=== PATIENT | male | born 1945 | race Hispanic/Latino ===

== ENCOUNTER 2017-07-22 09:36 | Emergency (ER) | payer MEDICARE ==
[2017-07-22 09:49] VITALS: BP 127/61; PULSE 74; RESP 18; TEMP 97; O2SAT 94
--- NOTE | 2017-07-22 10:20 | ED PDOC ---
Upper Extremity Pain/Injury Time Seen by Provider: 07/22/17 09:40 Chief Complaint (Nursing): Upper Extremity Problem/Injury Chief Complaint (Provider): Left arm pain History Per: Patient History/Exam Limitations: no limitations Onset/Duration Of Symptoms: Hrs Current Symptoms Are (Timing): Still Present Additional Complaint(s): 71 y/o male presents to the emergency department with a complaint of left arm pain after he tripped and fell on the streets earlier today, 07/22/2017. Reports last tetanus shot was about 3 years ago. Denies loss of consciousness or head injury. PMD: Dr. Florencio Carvalho MD Past Medical History Reviewed: Historical Data, Nursing Documentation, Vital Signs Vital Signs: Last Vital Signs Temp 97 F L 07/22/17 09:46 Pulse 74 07/22/17 09:46 Resp 18 07/22/17 09:46 BP 127/61 07/22/17 09:46 Pulse Ox 94 L 07/22/17 09:46 - Medical History PMH: Cardia Arrhythmia, HTN, Hyperthyroidism - Family History Family History: States: Unknown Family Hx - Social History Current smoker - smoking cessation education provided: Yes (Heavy Smoker > 10 Cigarettes Daily) Alcohol: None Drugs: Denies - Home Medications Home Medications: Ambulatory Orders Medication Instructions Recorded Bacitracin OINT 1 applic TP BID #1 tube 07/22/17 - Allergies Allergies/Adverse Reactions: Allergies Allergy/AdvReac Type Severity Reaction Status Date / Time No Known Allergies Allergy Verified 07/22/17 09:46 Review of Systems ROS Statement: Except As Marked, All Systems Reviewed And Found Negative Constitutional: Negative for: Other (Loss of consciousness) Musculoskeletal: Positive for: Arm Pain (Left arm) Neurological: Negative for: Other (No head injury) Physical Exam - Reviewed Nursing Documentation Reviewed: Yes Vital Signs Reviewed: Yes - Physical Exam Appears: Positive for: Non-toxic, No Acute Distress Head Exam: Positive for: ATRAUMATIC, NORMAL INSPECTION Skin: Positive for: Normal Color, Warm, Dry Neck: Positive for: Normal, Supple Cardiovascular/Chest: Positive for: Regular Rate, Rhythm. Negative for: Murmur Respiratory: Positive for: Normal Breath Sounds. Negative for: Accessory Muscle Use, Respiratory Distress Extremity: Positive for: Normal ROM (Full), Other (Positive ecchymosis and superficial abrasion noted to the left inferior elbow region) Neurologic/Psych: Positive for: Alert, Oriented (x3) - ECG O2 Sat by Pulse Oximetry: 94 (RA) Pulse Ox Interpretation: Normal Medical Decision Making Medical Decision Making: Time: 09:50 Initial impression: Elbow abrasion Initial plan: --Elbow X-ray --Tetanus 0.5 ml IM --Reevaluation Scribe Attestation: Documented by Saray Stephens, acting as a scribe for Denice Woodward MD. Provider Scribe Attestation: All medical record entries made by the Scribe were at my direction and personally dictated by me. I have reviewed the chart and agree that the record accurately reflects my personal performance of the history, physical exam, medical decision making, and the department course for this patient. I have also personally directed, reviewed, and agree with the discharge instructions and disposition. Disposition - Clinical Impression Clinical Impression: Elbow abrasion - Disposition Referrals: Florencio Carvalho MD [Primary Care Provider] - Disposition: Routine/Home Disposition Time: 10:26 Condition: STABLE Prescriptions: Bacitracin OINT 1 applic TP BID #1 tube Instructions: Abrasion (ED) Forms: [employer] ([place]andan)
--- NOTE | 2017-07-22 17:38 | RAD ---
PROCEDURE: Radiographs of the left elbow. HISTORY: Fall COMPARISON: No prior. FINDINGS: BONES: No acute displaced fracture. JOINTS: No dislocation. SOFT TISSUES: Unremarkable. No evidence of radiopaque foreign body. JOINT EFFUSION: No significant joint effusion. OTHER FINDINGS: None IMPRESSION: No acute displaced fracture, dislocation, or significant joint effusion identified. If high clinical index of suspicion persists for occult fracture, suggest cross-sectional imaging. Otherwise if symptoms persist, or if there is continued clinical concern, x-ray follow-up in 7-10 days should be considered.
== END 2017-07-22 10:46 | disposition home or self-care (01) ==
LOC: SUPCPDRO 09:36 → H.ER 09:36
DX: S50.312A Abrasion of left elbow, initial encounter (principal); W19.XXXA Unspecified fall, initial encounter; Y92.89 Other specified places as the place of occurrence of the external cause; E05.90 Thyrotoxicosis, unspecified without thyrotoxic crisis or storm; I10 Essential (primary) hypertension